=== PATIENT | female | born 2000 | race Caucasian/White ===

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

== ENCOUNTER 2018-02-05 13:27 | Emergency (ER) | payer MEDICAID ==
[~2018-02-05] VITALS: Ht 152.4 cm; Wt 50.0 kg
[2018-02-05 13:31] VITALS: BP 130/60; PULSE 91; RESP 20; TEMP 98.4; O2SAT 100
[2018-02-05 14:28] LABS: AUTOMATED NEUTROPHIL # 5.6 TH/MM3 (1.8-7.7); BASOPHIL % 0.4 % (0.0-2.0); EOSINOPHIL # 0.1 TH/MM3 (0-0.4); EOSINOPHIL % 0.9 % (0.0-4.0); HEMATOCRIT 37.6 % (35.0-46.0); HEMOGLOBIN 12.8 GM/DL (11.6-15.3); LYMPH % 21.3 % (9.0-44.0); LYMPHOCYTE # 1.7 TH/MM3 (1.0-4.8); MEAN CELL VOLUME 80.7 FL (80.0-100.0); MEAN CORPUSCULAR HEMOGLOBIN 27.4 PG (27.0-34.0); MEAN CORPUSCULAR HGB CONC 33.9 % (32.0-36.0); MEAN PLATELET VOLUME 8.8 FL (7.0-11.0); MONO % 8.5 % (0.0-8.0); MONOCYTE # 0.7 TH/MM3 (0-0.9); NEUT % 68.9 % (16.0-70.0); PLATELET COUNT 282 TH/MM3 (150-450); RED BLOOD COUNT 4.66 MIL/MM3 (4.00-5.30); RED CELL DISTRIBUTION WIDTH 14.4 % (11.6-17.2); WHITE BLOOD COUNT 8.1 TH/MM3 (4.0-11.0)
[2018-02-05 14:40] LABS: AMORPHOUS SEDIMENT, URINE RARE; BACTERIA, URINE FEW /hpf; BILIRUBIN, URINE NEG (NEG); BLOOD, URINE NEG (NEG); GLUCOSE,URINE NEG (NEG); KETONE, URINE 10 mg/dL (NEG); MUCUS URINE FEW /lpf (OCC); NITRITE,URINE POS (NEG); RENAL EPITHELIAL CELLS <1 /hpf; SQUAMOUS EPITHELIAL CELL URINE 4 /hpf (0-5); URINE COLOR YELLOW (YELLW/STRAW); URINE LEUKOCYTE ESTERASE MOD (NEG)
[2018-02-05] MEDS ORDERED: SODIUM CHLOR 0.9% 250 ML INJ 250 ML IV ONE (14:45)
[2018-02-05] MEDS ORDERED: cefTRIAXone INJ 1,000 MG in SODIUM CHLORIDE 0.9% INJ 100 ML IV ONE (15:00)
[2018-02-05 17:29] VITALS: BP 111/59; PULSE 68; RESP 16; TEMP 98.4
--- NOTE | 2018-02-05 17:35 | RADRPT ---
EXAM DATE: 02/05/2018 4:33 PM EDT AGE/SEX: 17 years / Female INDICATIONS: Bleeding with . CLINICAL DATA: This is the patient's initial encounter. Patient reports that signs and symptoms have been present for 3 days and indicates a pain score of 8/10. MEDICAL/SURGICAL HISTORY: . Congenital heart defect. PTSD. Tonsillectomy. Cholecyst ectomy. COMPARISON: None. TECHNIQUE: Real-time ultrasound of the pelvis was performed using an endovaginal transducer. [facility],827 MEASUREMENTS (cm x cm x cm): Uterus:__Measures 9.0 x 6.2 x 8.7 cm Endometrial Stripe:__>20 mm Right Ovary:__Measures 4.7 x 2.6 x 2.8 cm Left Ovary:__Measures 3.3 x 1.6 x 2.1 cm FINDINGS: Uterus: A single intrauterine gestation is observed. A well-formed gestational sac and yolk sac. A s mall pole noted with crown-rump length 0.6 cm which equals 6 weeks 3 days gestational age. Feta l heart rate 116 bpm. Right Ovary: There is a simple cyst involving the inferior margin of the right ovary. This measures 2.2 x 2.2 x 1.6 cm. It is smoothly marginated and well circumscribed. Posterior acoustical enhancemen t noted. Left Ovary: Left ovary is unremarkable. No mass. Other: No free fluid. CONCLUSION: 1. Single intrauterine gestation. Age by crown-rump length is 6 weeks 3 days. heart rate 116 b pm. 2. 2.2 cm simple cyst involving the right ovary. Electronically signed by: Yevgeniy Saucedo MD 02/05/2018 5:34 PM EDT
[2018-02-05 17:46] VITALS: BP 103/56; PULSE 63; RESP 17; O2SAT 100
[2018-02-05] MEDS ORDERED: PREN29TA PO (17:52)
[2018-02-05] MEDS ORDERED: CEPH-460 PO (17:52)
--- NOTE | 2018-02-05 17:59 | PD ---
HPI Chief Complaint: Related Problem Time Seen by Provider: 13:53 Travel History International Travel<30 days: No Contact w/Intl Traveler<30days: No Traveled to known affect area: No History of Present Illness HPI 17-year-old female that presents to the ED for evaluation of possible and abdominal pain and vaginal bleeding. Per patient she has had the abdominal discomfort for about 33 days. Per patient feels like a cramping in the lower abdomen. She has noted some bleeding for the past 2 days. She states that she might be but she has not had a period since she had her last child about 4 months ago. She is not sure. She did do a test at home and it was positive. She is concerned she might be again patient has any nausea or vomiting. She states that she is Rh-. She states that the abdominal pain is 7 out of 10 but comes and goes and is more cramping in nature. Mostly to the pelvic area. Denies any bowel movement issues. No chest pain or shortness of breath. No injuries or trauma. Has not seen anybody for this. No allergies to medication. No other medical issues. Has not taken anything for this. PFSH Past Medical History ADD: Yes ADHD: Yes Weight (Kg): 1 Depression: Yes (PTSD) Cancer: No Cardiovascular Problems: Yes (HEART DEFECT AGE 7) Developmental Delay: No Diabetes: No Diminished Hearing: No Headaches: No Psychiatric: Yes (PTSD, ODD) Reproductive: Yes (PT REPORTS SHORTNESS OF BREATH WITH EXERTION ( RUNNING)) Immunizations Current: Yes Migraines: No Seizures: No Thyroid Disease: No Ulcer: No ?: : 1 Para: 1 Past Surgical History Appendectomy: No Cardiac Surgery: Yes (2009 FOR CONGENITAL DEFECT) Section: No Cholecystectomy: No Tonsillectomy: Yes Other Surgery: Yes (heart surgery) Social History Alcohol Use: No Tobacco Use: No Substance Use: No (MARIJUANA ONLY ONE TIME ) Allergies-Medications (Allergen,Severity, Reaction): Coded Allergies: No Known Allergies (Verified , 07/15/16) Reported Meds & Prescriptions Reported Meds & Active Scripts Active Plus Iron 29-1 mg ( Vit-Iron Carbonyl) 29 Mg Iron-1 Mg Tab 1 Tab PO DAILY Keflex (Cephalexin) 500 Mg Cap 500 Mg PO Q12H 10 Days Zoloft (Sertraline HCl) 50 Mg Tab 50 Mg PO DAILY Zyprexa (Olanzapine) 2.5 Mg Tab 2.5 Mg PO HS Review of Systems Except as stated in HPI: all other systems reviewed are Neg Physical Exam Narrative GENERAL: SKIN: Warm and dry. HEAD: Atraumatic. Normocephalic. EYES: Pupils equal and round. No scleral icterus. No injection or drainage. ENT: No nasal bleeding or discharge. Mucous membranes pink and moist. Tongue is midline. No uvula deviation. NECK: Trachea midline. No JVD. CARDIOVASCULAR: Regular rate and rhythm. RESPIRATORY: No accessory muscle use. Clear to auscultation. Breath sounds equal bilaterally. GASTROINTESTINAL: Abdomen soft, non-tender, nondistended. Hepatic and splenic margins not palpable. Pelvic exam: Seen with female nurse present at all times. Patient does appear to have warty-looking rash on the lower aspect of the labia bilaterally. No pruritic or painful. No pustules. Pelvic exam itself revealed no sign of mass or deformity. Patient does have some whitish discharge coming from the cervix. Minimal. Vaginal wall appears to be intact. Patient does have a uterus on exam. MUSCULOSKELETAL: Extremities without clubbing, cyanosis, or edema. No obvious deformities. Full range of motion of the upper and lower extremities bilaterally with no pain. 2+ pulses bilaterally. NEUROLOGICAL: Awake and alert. No obvious cranial nerve deficits. Motor grossly within normal limits. Five out of 5 muscle strength in the arms and legs. Normal speech. PSYCHIATRIC: Appropriate mood and affect; insight and judgment normal. Data Data Last Documented VS Vital Signs Date Time Temp Pulse Resp B/P (MAP) Pulse Ox O2 Delivery O2 Flow Rate FiO2 02/05/18 18:14 02/05/18 17:46 63 17 100 Room Air 02/05/18 17:29 98.4 Orders Orders Beta Hcg (Quant/Titer) (02/05/18 14:07) Complete Blood Count With Diff (02/05/18 14:07) Gc And Chlamydia Pcr (02/05/18 14:07) Type And Screen (02/05/18 14:07) Wet Prep Profile (02/05/18 14:07) Urinalysis - C+S If Indicated (02/05/18 14:07) Ed Urine Pregnancytest Poc (02/05/18 14:08) Blood Product Administration (02/05/18 14:34) Rhogam Only (02/05/18 14:34) Blood Product Administration (02/05/18 14:34) Sodium Chlor 0.9% 250 Ml Inj (Ns 250 Ml (02/05/18 14:45) Urine Culture (02/05/18 14:00) Ceftriaxone Inj (Rocephin Inj) (02/05/18 15:00) Us Pelvis Preg(/ Gestat) (02/05/18 ) Ed Discharge Order (02/05/18 17:49) Labs Laboratory Tests Test 02/05/18 14:00 02/05/18 14:30 White Blood Count 8.1 TH/MM3 Red Blood Count 4.66 MIL/MM3 Hemoglobin 12.8 GM/DL Hematocrit 37.6 % Mean Corpuscular Volume 80.7 FL Mean Corpuscular Hemoglobin 27.4 PG Mean Corpuscular Hemoglobin Concent 33.9 % Red Cell Distribution Width 14.4 % Platelet Count 282 TH/MM3 Mean Platelet Volume 8.8 FL Neutrophils (%) (Auto) 68.9 % Lymphocytes (%) (Auto) 21.3 % Monocytes (%) (Auto) 8.5 % Eosinophils (%) (Auto) 0.9 % Basophils (%) (Auto) 0.4 % Neutrophils # (Auto) 5.6 TH/MM3 Lymphocytes # (Auto) 1.7 TH/MM3 Monocytes # (Auto) 0.7 TH/MM3 Eosinophils # (Auto) 0.1 TH/MM3 Basophils # (Auto) 0.0 TH/MM3 CBC Comment DIFF FINAL Differential Comment Urine Color YELLOW Urine Turbidity HAZY Urine pH 6.0 Urine Specific [place] 1.022 Urine Protein TRACE mg/dL Urine Glucose (UA) NEG mg/dL Urine Ketones 10 mg/dL Urine Occult Blood NEG Urine Nitrite POS Urine Bilirubin NEG Urine Urobilinogen LESS THAN 2.0 MG/DL Urine Leukocyte Esterase MOD Urine RBC 1 /hpf Urine WBC 18 /hpf Urine Squamous Epithelial Cells 4 /hpf Urine Renal Epithelial Cells <1 /hpf Urine Amorphous Sediment RARE Urine Bacteria FEW /hpf Urine Mucus FEW /lpf Microscopic Urinalysis Comment CULTURE INDICATED Human Chorionic Gonadotropin, Quant 30215 MIU/ML Clue Cells (Wet Prep) NONE SEEN Vaginal Trichomonas (Wet Prep) NONE SEEN Vaginal Yeast (Wet Prep) NONE SEEN Chlamydia trachomatis DNA (PCR) NOT DETECTED Neisseria gonorrhoeae DNA (PCR) NOT DETECTED [facility] Medical Decision Making Medical Screen Exam Complete: Yes Emergency Medical Condition: Yes Medical Record Reviewed: Yes Interpretation(s) CBC & BMP Diagram 02/05/18 14:00 wet prep negative UA shows signs of UTI Last Impressions Obstetrics Ultrasound 02/05/18 0000 Signed Impressions: CONCLUSION: 1. Single intrauterine gestation. Age by crown-rump length is 6 weeks 3 days. heart rate 116 bpm. 2. 2.2 cm simple cyst involving the right ovary. GC and Chlamydia negative BETA HCG high Differential Diagnosis versus ectopic versus vaginal discharge versus vaginal bleeding versus abdominal pain during Narrative Course 17-year-old female that presents to the ED for evaluation of lower abdominal pain and possible . Patient was properly examined and was found to have signs and symptoms consistent appears to be possible . test here was positive. Blood time labs were ordered. Per patient she is blood type negative. She states that she has had program in the past. She states that she has some minor bleeding. My attending recommends given program as the patient complained of bleeding. My physical exam there is no bleeding however. She does have some whitish discharge that appears to be possibly normal. Labs and imaging were done. Labs and imaging show what appears to be a 6 week with 3 days. UTI noted. Patient was given ceftriaxone here. Given a prescription for Keflex and vitamins. Told to follow closely with OPERATIONS ARCHITECT. See ED worsening symptoms. Diagnosis Primary Impression: Abdominal pain during in first trimester Additional Impressions: Vaginal bleeding UTI (urinary tract infection) Qualified Codes: N30.00 - Acute cystitis without hematuria Patient Instructions: General Instructions Additional Instructions: Tylenol for pain. Your US and blood work showed you are about 6 weeks and 3 days . You have UTI, keflex is safe during to take. You cannot take motrin, advil, naproxen for pain as you are . Take medications as prescribed. Follow-up with OB. See ED if worsening symptoms. Med/Other Pt SpecificInfo: Prescription(s) given Scripts Vit-Iron Carbonyl ( Plus Iron 29-1 mg) 29 Mg Iron-1 Mg Tab 1 TAB PO DAILY for Nutritional Supplement, #30 TAB 0 Refills Prov: Ml Parker MD 02/05/18 Cephalexin (Keflex) 500 Mg Cap 500 MG PO Q12H for Infection for 10 Days, #20 CAP 0 Refills Prov: Ml Parker MD 02/05/18 Disposition: 01 DISCHARGE HOME Condition: Stable Dagoberto Wilson February 05, 2018 17:59
== END 2018-02-05 19:40 | disposition home or self-care (01) ==
LOC: NEPC 13:27
DX: O20.9 Hemorrhage in early pregnancy, unspecified (principal); O23.11 Infections of bladder in pregnancy, first trimester; B96.20 Unspecified Escherichia coli [E. coli] as the cause of diseases classified elsewhere; Z3A.01 Less than 8 weeks gestation of pregnancy
CPT/HCPCS: 76801; 81001; 84702; 84703; 85025; 86850; 86900; 86901; 87077; 87086; 87186; 87210; 87491; 87591; 90384; 96374; 99284; J0696; J2790